=== PATIENT | female | born 1930 | race Caucasian/White ===

== ENCOUNTER 2016-07-23 12:53 | Inpatient (IN) | payer OTHER ==
[~2016-07-23] VITALS: Ht 162.6 cm; Wt 53.8 kg
[2016-07-23 14:27] LABS: BASOPHIL COUNT 0.1 K/uL (0-0.1); EOSINOPHIL (%) 2.8 % (0-5); EOSINOPHIL COUNT 0.3 K/uL (0-0.3); HEMATOCRIT 35.1 % (36.0-46.0); IMMATURE GRANULOCYTE (%) 0.2 % (0.0-0.7); IMMATURE GRANULOCYTE COUNT 0.2 K/uL; LYMPHOCYTE COUNT 2.2 K/uL (1.0-2.8); MCH 28.9 PG (29.0-34.0); MCHC 32.5 G/DL (30.0-36.0); MCV 89.1 FL (83-99); MEAN PLAT.VOLUME 10.7 uM^3 (9.5-12.4); MONOCYTE (%) 8.9 % (3-12); MONOCYTE COUNT 0.9 K/uL (0-0.8); NEUTROPHIL (%) 64.6 % (45-76); NEUTROPHIL COUNT 6.2 K/uL (1.8-6.4); PLATELET COUNT 240 K/uL (156-360); RBC DIS.WIDTH-CV 14.9 % (11.8-14.6); RBC DIS.WIDTH-SD 48.1 % (39-53); RED BLOOD COUNT 3.94 M/uL (3.80-5.20); WHITE BLOOD COUNT 9.6 K/uL (4.1-10.2)
[2016-07-23 14:40] LABS: CHLORIDE 106 mEq/L (99-109); SODIUM 139 mEq/L (136-147)
[2016-07-23 14:42] LABS: GLUCOSE 99 mg/dL (70-99)
[2016-07-23 14:43] LABS: ANION GAP 8 MEQ/L (2-14)
[2016-07-23 14:44] LABS: TOTAL BILIRUBIN 0.2 mg/dL (0.0-1.0)
[2016-07-23 14:46] LABS: ALKALINE PHOSPHATASE 91 IU/L (3-129); GFR ESTIMATE (CALCULATED) > 59 mL/min/
[2016-07-23 14:47] LABS: UREA NITROGEN (BUN) 17 mg/dL (9-23)
[2016-07-23 15:23] LABS: BILIRUBIN NEGATIVE; BLOOD NEGATIVE; COLOR YELLOW ((YELLOW)); GLUCOSE (STRIP) NEGATIVE; KETONES NEGATIVE; LEUKOCYTES NEGATIVE; NITRITE NEGATIVE; PROTEIN (STRIP) NEGATIVE; SPECIFIC GRAVITY 1.011 (1.000-1.030); UROBILINOGEN 0.2 MG/DL (0.2-1.0)
[2016-07-23 15:28] LABS: ADD MIUA? NO
[2016-07-23] MEDS ORDERED: DEPAKOTE250 MG PO (19:39)
[2016-07-23] MEDS ORDERED: SEROQUEL50 MG PO (19:39)
[2016-07-23] MEDS ORDERED: SEROQUEL12.5 MG PO (19:39)
[2016-07-23] MEDS ORDERED: SERTRALINE HCL100 MG PO (19:40)
[2016-07-23] MEDS ORDERED: ATIVAN1 MG PO (19:40)
[2016-07-23] MEDS ORDERED: BUSPAR5 MG PO (19:40)
[2016-07-23] MEDS ORDERED: EXELON PATCH4.6 MG TD (19:40)
[2016-07-23] MEDS ORDERED: LEVOTHYROXINE75 MCG PO (19:41)
[2016-07-23] MEDS ORDERED: FAMOTIDINE20 MG PO (19:41)
[2016-07-23] MEDS ORDERED: TYLENOL ARTHRI650 MG PO (19:41)
[2016-07-23] MEDS ORDERED: NAMENDA XR28 MG PO (19:42)
[2016-07-23] MEDS ORDERED: MIRTAZAPINE15 MG PO (19:42)
[2016-07-24 16:19] VITALS: BP 134/79
[2016-07-25 07:54] VITALS: BP 127/61
[2016-07-25 15:46] VITALS: BP 150/73
[2016-07-26 07:48] VITALS: BP 125/74
[2016-07-26 16:53] VITALS: BP 142/81
[2016-07-27 08:03] VITALS: BP 145/60
[2016-07-27 15:53] VITALS: BP 117/60
[2016-07-28 07:49] VITALS: BP 125/58
[2016-07-28 15:25] VITALS: BP 134/71
[2016-07-29 09:41] VITALS: BP 118/60
[2016-07-29 15:45] VITALS: BP 151/79
[2016-07-29 21:51] VITALS: BP 143/77
[2016-07-30 07:26] VITALS: BP 138/78
[2016-07-30 15:59] VITALS: BP 161/84
[2016-07-30 18:26] VITALS: BP 128/70
[2016-07-31 07:41] VITALS: BP 110/59
[2016-07-31 16:00] VITALS: BP 137/75
[2016-08-01 07:48] VITALS: BP 150/84
[2016-08-01 14:53] VITALS: BP 159/81
[2016-08-01 19:27] VITALS: BP 127/71
[2016-08-02] MEDS ORDERED: EXELON PATCH4.6 MG TD (09:24)
[2016-08-02] MEDS ORDERED: SERTRALINE HCL100 MG PO (09:24)
[2016-08-02] MEDS ORDERED: MIRTAZAPINE15 MG PO (09:24)
[2016-08-02] MEDS ORDERED: QUETIAPINE FUM100 MG PO (09:24)
[2016-08-02] MEDS ORDERED: LEVOTHYROXINE75 MCG PO (09:24)
[2016-08-02] MEDS ORDERED: NAMENDA XR28 MG PO (09:24)
[2016-08-02] MEDS ORDERED: QUETIAPINE FUMA50 MG PO (09:24)
[2016-08-02] MEDS ORDERED: DIVALPROEX SOD500 MG PO (09:24)
[2016-08-02] MEDS ORDERED: FAMOTIDINE20 MG PO (09:24)
[2016-08-02] MEDS ORDERED: VITAMIN D31000 UNI2 PO (09:24)
[2016-08-02 10:00] VITALS: BP 117/59
== END 2016-08-02 12:49 | disposition home or self-care (01) | DRG 884 ==
LOC: EME 12:53 → EDOF 07-24 14:30 → 1WEST 07-24 14:30
PROVIDERS: Emergency Medicine
DX: F03.91 Unspecified dementia, unspecified severity, with behavioral disturbance (principal); F05 Delirium due to known physiological condition; R45.1 Restlessness and agitation; E89.0 Postprocedural hypothyroidism; F41.9 Anxiety disorder, unspecified; G47.00 Insomnia, unspecified; K21.9 Gastro-esophageal reflux disease without esophagitis; R41.82 Altered mental status, unspecified; I10 Essential (primary) hypertension; E78.5 Hyperlipidemia, unspecified; Z78.1 Physical restraint status; Z87.891 Personal history of nicotine dependence
CPT/HCPCS: 70450; 71010; 80053; 80164; 81003; 85025; 90837; 90839; 93005; 97150 GO; 97166 GO; 97530 GO; 99281; 99285; J2060